=== PATIENT | female | born 1995 | race American Indian/Alaskan Native ===

== ENCOUNTER 2017-03-29 08:02 | Emergency (ER) | payer MEDICAID ==
[2017-03-29] MEDS ORDERED: MOTRIN PO ONE (10:33)
--- NOTE | 2017-03-29 10:33 | Emergency Department Report ---
Upper Extremity - HPI Chief Complaint: Extremity Injury, Upper Stated Complaint: STRAINED CHEST PUSHING PERSON AT WORK Time Seen by Provider: 03/29/17 09:05 Upper Extremity: Left Shoulder (pain after pushing a heavy object) Occurred When: 1 Day Mechanism: Other (push and heavy object) Symptoms: Yes Pain with Movement (left shoulder and left rib anterior and posterior), No Deformity, No Limited Range of Movement, No Numbness, No Weakness , No Swelling, No Bruising/Ecchymosis, No Laceration or Abrasion Other History: Seen here report that she was at work and was pushing in 300 pound individual in a wheelchair and she said that she accidentally injured her chest on the left side and left upper back along which shoulder. Denies any radiation of pain. Denies any fall. She said pain is 8 out of 10 with movement. Pain is sharp. No [id number] medication taken. Pain is worse with movement better with rest. ED Review of Systems ROS: Stated complaint: STRAINED CHEST PUSHING PERSON AT WORK Other details as noted in HPI Comment: All other systems reviewed and negative Constitutional: no symptoms reported Respiratory: no symptoms reported Cardiovascular: denies: chest pain, palpitations, dyspnea on exertion, edema, syncope Musculoskeletal: back pain (upper back pain), arthralgia (shoulder pain), other (left chest wall pain anterior shoulder). denies: joint swelling, myalgia Skin: denies: rash Neurological: denies: headache, numbness, paresthesias, confusion, abnormal gait , vertigo ED Past Medical Hx - Past Medical History Previous Medical History?: No - Surgical History Past Surgical History?: Yes Additional Surgical History: left knee - Family History Family history: no significant - Social History Smoking Status: Former Smoker Substance Use Type: Alcohol - Medications Home Medications: Home Medications Medication Instructions Recorded Confirmed Last Taken Type Cyclobenzaprine [Flexeril] 10 mg PO TID PRN #15 tablet 03/29/17 Unknown Rx Ibuprofen [Motrin] 600 mg PO Q8H PRN #15 tablet 03/29/17 Unknown Rx Upper Extremity Exam - Exam General: Vital signs noted. No distress. Alert and acting appropriately. This is a 22-year-old female well-nourished well-developed in no acute distress Head and Torso: No HEENT Abnormality, No Neck Tenderness, No Chest/Lungs Abnormality, No Abdominal Tenderness, No Back Tenderness Shoulder Exam: Yes Shoulder Tenderness (left shoulder), Yes Normal Range of Motion in Shoulder, No Clavicle Tenderness, No Shoulder Deformity, No AC Joint Tenderness Arm Exam: No Arm/Humerus Tenderness, No Arm Deformity Elbow: Yes Normal Range of Motion in Elbow, No Elbow Tenderness, No Elbow Deformity Forearm: No Forearm Tenderness, No Forearm Deformity, No Pain with Pronation, No Pain with Supination Wrist: Yes Normal ROM in Wrist, No Wrist Tenderness, No Wrist Deformity, No Snuffbox Tenderness, No Pain with Axial Thumb Compression Hand: Yes Normal ROM in Digit(s), No Hand Tenderness, No Hand Deformity, No Digit Tenderness, No Digit(s) Deformity, No Tendon Dysfunction CMS Exam: Yes Normal Distal Pulses, Yes Normal Capillary Refill, Yes Normal Distal Sensation, No Broken Skin ED Course Vital Signs 03/29/17 08:25 Temperature 98.4 F Pulse Rate 79 Respiratory 16 Rate Blood Pressure 106/63 O2 Sat by Pulse 98 Oximetry - Reevaluation(s) Reevaluation #1: 03/29/17 11:49 Patient was given Motrin 800 mg by mouth in emergency room which she said relieved her pain. ED Medical Decision Making - Radiology Data Radiology results: image reviewed interpreted by me: X-ray of left rib series and PA chest reveal no acute bony abnormalities and no acute cardiopulmonary findings. This was reviewed by myself and Dr. Norton. - Medical Decision Making ED course: Patient status post injury to left shoulder and left upper back and left anterior chest from pushing a heavy object yesterday. She was given Motrin 800 mg by mouth and emergency room which helped her pain. X-ray of left shoulder reveals no acute bony abnormality. X-ray left rib series revealed no acute findings. This was discussed with patient along with diagnosis and treatment plan and she voiced understanding. Patient discharged home in stable condition to follow up with her primary care physician in 2-3 days. Discharged home with prescription for Flexeril and Motrin Critical care attestation.: If time is entered above; I have spent that time in minutes in the direct care of this critically ill patient, excluding procedure time. ED Disposition Clinical Impression: Arthralgia of left shoulder region, Musculoskeletal pain Muscle strain of left upper back Qualifiers: Encounter type: initial encounter Qualified Code(s): S29.012A - Strain of muscle and tendon of back wall of thorax, initial encounter Disposition: DC-01 TO HOME OR SELFCARE Is pt being admited?: No Does the pt Need Aspirin: No Condition: Stable Instructions: Muscle Strain (ED), Arthralgia (ED), Back Pain (ED), RICE Therapy (ED) Additional Instructions: Please rest, ice, compress and elevate affected area for 72 hours Please follow up with orthopedic doctor in 3 days if you do not get relief of pain Please do not drive or operate heavy machinery while taking Flexeril as this medication causes drowsiness Motrin is the anti-inflammatory and this will help pain but please take this medication with food. Prescriptions: Cyclobenzaprine [Flexeril] 10 mg PO TID PRN #15 tablet PRN Reason: Muscle Spasm Ibuprofen [Motrin] 600 mg PO Q8H PRN #15 tablet PRN Reason: Pain Referrals: PRIMARY CARE, [Primary Care Provider] - 2-3 Days RAGHU JACOBO MD [Staff Physician] - 2-3 Days Forms: Work/School Release Form(ED)
[2017-03-29 12:12] VITALS: BP 110/70
--- NOTE | 2017-03-29 12:57 | XRay Report ---
Chest with left ribs: History: Left rib pain after injury. Findings: No fracture or lytic lesion. The lung parenchyma appears unremarkable. No pneumothorax consolidation or pleural effusion. Impression: No acute lung changes. No evidence of acute fracture.
--- NOTE | 2017-03-29 12:57 | XRay Report ---
Left shoulder 3 views: History: Injury to left shoulder with pain. Findings: No bony or articular abnormality. No fracture dislocation or soft tissue calcification. Impression: Essentially negative left shoulder.
== END 2017-03-29 12:07 | disposition home or self-care (01) ==
LOC: ED 08:02
DX: M25.512 Pain in left shoulder (principal); M79.1 Myalgia; Z87.891 Personal history of nicotine dependence; W22.8XXA Striking against or struck by other objects, initial encounter; Y93.89 Activity, other specified; Y92.89 Other specified places as the place of occurrence of the external cause; Y99.8 Other external cause status

== ENCOUNTER 2019-05-31 04:13 | Emergency (ER) | payer SELFPAY ==
[2019-05-31 04:34] VITALS: BP 118/76
--- NOTE | 2019-05-31 08:16 | Emergency Department Report ---
Chief Complaint: Sore Throat Stated Complaint: MOUTH PAIN/THROAT SWELLING Time Seen by Provider: 05/31/19 07:41 - HPI History of Present Illness: Patient was seen by me for a medical triage only. As I entered the room patient was not there. Patient left before being examined, treated, or diagnosis. Patient was clearly instructed by cab supervisor that if patient leaves without being fully evaluated and treated that the condition may be serious and/or life threatening if not treated. RN has been notified to call patient back for further evulation and treatment. Patient left without being seen. - Exam Vital Signs: Vital Signs 05/31/19 04:29 Temperature 98.6 F Pulse Rate 98 H Respiratory 16 Rate Blood Pressure 118/76 O2 Sat by Pulse 96 Oximetry MSE screening note: Focused history and physical exam performed. Due to findings the following was ordered: ED Disposition for MSE Disposition: Z-07 ELOPED Condition: Undetermined
== END 2019-05-31 08:33 | disposition left against medical advice (07) ==
LOC: ED 04:13
DX: J02.9 Acute pharyngitis, unspecified (principal); Z53.21 Procedure and treatment not carried out due to patient leaving prior to being seen by health care provider